=== PATIENT | male | born 1945 | race Caucasian/White ===

== ENCOUNTER 2019-08-16 04:03 | Emergency (ER) | payer OTHER ==
[~2019-08-16] VITALS: Ht 172.7 cm; Wt 99.8 kg
[~2019-08-16 04:03] MED LIST: ALBU90OI61 INH; ASPI81CH PO; ATOR20 PO; AZIT250 PO; BENZ100A PO; CEPH500 PO; FINA5 PO; FLONASE ALLERG9.9 ML NS; FLUSAL1005 INH; GLUC500; Hair, Skin & N1 EACH; LORA10 PO; NAPR220 PO; OXYM.05NI; PROBIOTIC1 EAC1; Prednisone20 MG PO; TAMS.4ER PO
[2019-08-16] MEDS ORDERED: ATOR10 PO (04:37)
[2019-08-16] MEDS ORDERED: FINA5 PO (04:38)
[2019-08-16] MEDS ORDERED: TAMS.4ER PO (04:38)
[2019-08-16] MEDS ORDERED: AIRDUO RESPICL1 EAC1 INH (04:39)
[2019-08-16] MEDS ORDERED: ASPI81CH PO (04:39)
[2019-08-16] MEDS ORDERED: PROBIOTIC PO (04:40)
[2019-08-16] MEDS ORDERED: FISH OIL 1,2001 EACH PO (04:40)
[2019-08-16] MEDS ORDERED: OCUVITE EYE +1 EACH PO (04:40)
[2019-08-16] MEDS ORDERED: NAPR220 PO (04:41)
[2019-08-16] MEDS ORDERED: GLUC500 PO (04:41)
[2019-08-16] MEDS ORDERED: Daily Multiple1 EACH PO (04:41)
[2019-08-16 04:58] LABS: BASOPHILS ABSOLUTE AUTO 0.03 K/mm3 (0.00-0.23); BASOPHILS PERCENT AUTO 0 % (0-2); EOSINOPHILS ABSOLUTE AUTO 0.07 K/mm3 (0.00-0.68); EOSINOPHILS PERCENT AUTO 1 % (0-6); Hematocrit 41.9 % (37.0-53.0); Hemoglobin 14.1 g/dL (13.5-17.5); IMMATURE GRAN ABSOLUTE AUTO 0.01 K/mm3 (0.00-0.10); IMMATURE GRAN PERCENT AUTO 0 % (0-1); LYMPHOCYTES ABSOLUTE AUTO 1.28 K/mm3 (0.84-5.20); LYMPHOCYTES PERCENT AUTO 15 % (21-46); MONOCYTES ABSOLUTE AUTO 0.87 K/mm3 (0.16-1.47); MONOCYTES PERCENT AUTO 10 % (4-13); Mean Corpuscular HGB 31.4 pg (26.0-34.0); Mean Corpuscular HGB Conc 33.7 g/dL (31.5-36.5); Mean Corpuscular Volume 93 fL (80-100); Mean Platelet Volume 10.2 fL (9.1-12.4); NEUTROPHILS ABSOLUTE AUTO 6.22 K/mm3 (1.96-9.15); NEUTROPHILS PERCENT AUTO 73 % (41-73); Platelet Count 143 K/mm3 (150-400); RDW Coefficient Variation 13.6 % (11.7-14.2); RDW Standard Deviation 46.1 fL (35.1-46.3); Red Blood Cell Count 4.49 M/mm3 (4.30-5.90); White Blood Cell Count 8.48 K/mm3 (4.00-11.30)
[2019-08-16 05:20] LABS: Alanine Aminotransfer (ALT/SGP 37 U/L (12-78); Albumin, Blood 3.4 g/dL (3.4-5.0); Albumin/Globulin Ratio 0.9 (0.8-1.8); Alk Phos 52 U/L (50-136); Anion Gap 6 mmol/L (6-16); Aspartate Aminotrans (AST/SGOT 22 U/L (12-37); Bilirubin, Total 0.5 mg/dL (0.1-1.0); Blood Urea Nitrogen 19 mg/dL (8-24); Bun/Creatinine Ratio 23.9 (12.0-20.0); CO2, Blood 27 mmol/L (21-32); Calcium, Blood 8.9 mg/dL (8.5-10.1); Chloride, Blood 107 mmol/L (98-108); Globulin, Blood 3.8 g/dL (2.2-4.0); Glomerular Filtration Rate >60 (60-); Glucose, Blood 101 mg/dL (70-99); Potassium, Blood 3.6 mmol/L (3.5-5.5); Sodium, Blood 140 mmol/L (136-145); Total Protein, Blood 7.2 g/dL (6.4-8.2)
[2019-08-16 06:34] LABS: Influenza A Negative (NEGATIVE); Influenza B Negative (NEGATIVE)
[2019-08-16] MEDS ORDERED: Keflex500 MG PO (06:46)
== END 2019-08-16 06:55 | disposition home or self-care (01) ==
LOC: ER 04:03
PROVIDERS: Emergency Medicine
DX: L03.114 Cellulitis of left upper limb (principal); Z87.891 Personal history of nicotine dependence; Z88.2 Allergy status to sulfonamides; Z79.899 Other long term (current) drug therapy; Z79.82 Long term (current) use of aspirin
CPT/HCPCS: 36415; 71046; 80053; 83605; 85025; 87804; 96365; 96375; 99283-25; J0696; J1885

== ENCOUNTER 2023-06-20 23:44 | Emergency (ER) | payer MEDICARE ==
[~2023-06-20] VITALS: Ht 170.2 cm; Wt 108.9 kg
[~2023-06-20 23:44] MED LIST changes: +AIRDUO RESPICL1 EAC1 INH; +ATOR10 PO; +Daily Multiple1 EACH PO; +FISH OIL 1,2001 EACH PO; +GLUC500 PO; +Keflex500 MG PO; +OCUVITE EYE +1 EACH PO; +PROBIOTIC PO
[2023-06-21 00:14] VITALS: BP 156/91
== END 2023-06-21 02:48 | disposition home or self-care (01) ==
LOC: ER 23:44
DX: J30.9 Allergic rhinitis, unspecified (principal); Z88.2 Allergy status to sulfonamides; Z79.899 Other long term (current) drug therapy; Z79.82 Long term (current) use of aspirin; Z87.891 Personal history of nicotine dependence
CPT/HCPCS: 99282; J7512

== ENCOUNTER 2023-10-18 01:21 | Emergency (ER) | payer MEDICARE ==
[~2023-10-18] VITALS: Ht 170.2 cm; Wt 106.6 kg
[2023-10-18] MEDS ORDERED: DORZOPSO BOTHEYES (01:50)
[2023-10-18] MEDS ORDERED: TIMO.25OPS BOTHEYES (01:50)
[2023-10-18] MEDS ORDERED: MONT10T PO (01:51)
[2023-10-18] MEDS ORDERED: Voltaren100 GM (01:51)
[2023-10-18] MEDS ORDERED: DELTASONE20 MG PO (03:34)
[2023-10-18 03:45] VITALS: BP 122/72
[2023-10-19] MEDS ORDERED: AZIT250 PO (02:05)
== END 2023-10-18 03:48 | disposition home or self-care (01) ==
LOC: ER 01:21
DX: U07.1 COVID-19 (principal); N40.0 Benign prostatic hyperplasia without lower urinary tract symptoms; Z79.82 Long term (current) use of aspirin; Z79.51 Long term (current) use of inhaled steroids; Z79.899 Other long term (current) drug therapy; Z88.2 Allergy status to sulfonamides
CPT/HCPCS: 71045; 94640; 94664; 99284-25; J7512

== ENCOUNTER 2023-10-18 23:10 | Emergency (ER) | payer MEDICARE ==
[~2023-10-18] VITALS: Ht 170.2 cm; Wt 106.6 kg
[~2023-10-18 23:10] MED LIST changes: +DELTASONE20 MG PO; +DORZOPSO BOTHEYES; +MONT10T PO; +TIMO.25OPS BOTHEYES; +Voltaren100 GM
[2023-10-18 23:18] VITALS: BP 152/86
[2023-10-19] MEDS ORDERED: AZIT250 PO (02:05)
== END 2023-10-19 02:17 | disposition home or self-care (01) ==
LOC: ER 23:10
DX: U07.1 COVID-19 (principal); J44.89 Other specified chronic obstructive pulmonary disease; Z76.0 Encounter for issue of repeat prescription; N40.0 Benign prostatic hyperplasia without lower urinary tract symptoms; Z87.891 Personal history of nicotine dependence; Z79.51 Long term (current) use of inhaled steroids; Z79.82 Long term (current) use of aspirin; Z79.899 Other long term (current) drug therapy; Z88.2 Allergy status to sulfonamides
CPT/HCPCS: 71045; 94640; 94664; 99283-25; A9270